=== PATIENT | male | born 1950 | race American Indian/Alaskan Native ===

== ENCOUNTER 2018-05-19 10:05 | Inpatient (IN) | payer MEDICARE ==
[2018-05-19 10:18] VITALS: BMI 29.1
--- NOTE | 2018-05-19 11:24 | C.PDOC ---
History Of Present Illness 67-year-old male, whose past medical history includes HIV and HTN and surgical history includes back surgery in February 2018, presents to the ED for evaluation of intermittent dizziness and lightheadedness and abdominal bloating for a few days. Patient states his last bowel movement was more than three days ago. Patient denies fever, chills, chest pain, c/o shortness of breath. Additional information is difficult to obtain because patient is a vague historian and constantly keeps changing his story. Time Seen by Provider: 05/19/18 10:20 Chief Complaint (Nursing): Abdominal Pain History Per: Patient History/Exam Limitations: other (vague historian ) Onset/Duration Of Symptoms: Days, Intermittent Episodes Current Symptoms Are (Timing): Still Present Quality Of Discomfort: Other (bloating ). denies: "Pain" Associated Symptoms: Constipation. denies: Fever, Chills, Chest Pain Last Bowel Movement: Days Ago (more than 3) Additional History Per: Patient Past Medical History Reviewed: Historical Data, Nursing Documentation, Vital Signs Vital Signs: Last Vital Signs Temp 98.5 F 05/19/18 10:12 Pulse 81 05/19/18 10:12 Resp 20 05/19/18 10:12 BP 165/96 H 05/19/18 10:12 Pulse Ox 97 05/19/18 10:12 - Medical History PMH: Back Problems, CHF, HIV, HTN, Peripheral Edema Denies: Alzheimer's Disease, Anemia, Anxiety, Arthritis, Asthma, Bipolar Disorder, Bronchitis, Cardia Arrhythmia, COPD, Crohn's Disease, Dementia, De pression, Diverticulitis, Emphysema, Fibromyalgia, Fractures, Gastrointestinal Ulcer, Gall Bladder Disease, Hypercholesterolemia, Hyperthyroidism, Hypothyroidism, Kidney Stones, Migraine, Mitral Valve Prolapse, Osteoporosis, Pancreatitis, Paranoia, Parkinson's Disease, Pneumonia, Post Traumatic Stress Disorder, Chronic Kidney Disease, Schizophrenia, Seizures, Sickle Cell Disease, Sexually Transmitted Disease, Sleep Apnea, TIA Surgical History: No Surg Hx Denies: Appendectomy, Cholecystectomy, Coronary Stent, Pacemaker Family History: States: Unknown Family Hx - Social History Hx Alcohol Use: No (QUIT 21 YRS AGO) Hx Substance Use: No - Immunization History Hx Tetanus Toxoid Vaccination: No Hx Influenza Vaccination: No Hx Pneumococcal Vaccination: No Review Of Systems Constitutional: Negative for: Fever, Chills ENT: Negative for: Ear Pain, Mouth Pain Cardiovascular: Negative for: Chest Pain, Palpitations Respiratory: Positive for: Shortness of Breath. Negative for: Cough Gastrointestinal: Positive for: Constipation, Other (abdominal bloating ). Negative for: Nausea, Vomiting, Abdominal Pain Skin: Negative for: Rash Neurological: Positive for: Dizziness, Other (lightheadedness ) Physical Exam - Physical Exam Appears: Non-toxic, No Acute Distress, Other (well-nourished ) Skin: Normal Color, Warm, Dry Head: Atraumatic, Normacephalic Eye(s): bilateral: Other (pupils are small, but reactive (patient with chronic opioid use)) Oral Mucosa: Moist Neck: Supple Chest: Symmetrical, No Deformity, No Tenderness Cardiovascular: Rhythm Regular, No Murmur Respiratory: Normal Breath Sounds, No Rales, No Rhonchi, No Wheezing, Other (speaking in full sentences ) Gastrointestinal/Abdominal: Bowel Sounds (unremarkable ), Soft, No Tenderness, No Guarding, No Rebound, Other (full-appearing abdomen ) Extremity: Normal ROM, Capillary Refill (less than 2 seconds ) Neurological/Psych: Oriented x3, Normal Speech, Normal Cognition, Normal Cranial Nerves, Normal Motor, Normal Sensation Gait: Steady ED Course And Treatment - Laboratory Results Result Diagrams: 05/19/18 13:13 05/19/18 13:13 ECG: Interpreted By Me, Viewed By Me ECG Rhythm: Sinus Rhythm Interpretation Of ECG: Normal sinus rhythm at rate 77bpm. ST & T wave abnormality. Rate From EC O2 Sat by Pulse Oximetry: 97 (on RA ) Pulse Ox Interpretation: Normal - Other Rad Abdomen XR X-Ray: Viewed By Me, Read By Radiologist Interpretation: IMPRESSION: Mild stool scattered throughout the colon noted. No dilated small or large bowel loop seen. There is gas in nondistended small and large bowel loops noted. No obstruction appreciated. Clinical follow-up recommended. Large body habitus. Chest XR X-Ray: Viewed By Me, Read By Radiologist Interpretation: IMPRESSION: Mild left basilar atelectasis. Cardiomegaly. - CT Scan/US CT Chest Other Rad Studies (CT/US): Read By Radiologist, Radiology Report Reviewed CT/US Interpretation: IMPRESSION: There is evidence of pulmonary embolus within the right middle lobe of pulmonary artery. Note these findings were discussed with Dr. Scanlon at approximately 4:15 p.m. with written down and read back verification.. Ascending thoracic aorta measures approximately 3.8 cm. There are a few small of bleb changes seen in the upper lobes and lung apices right greater than left. CT Head Other Rad Studies (CT/US): Read By Radiologist, Radiology Report Reviewed CT/US Interpretation: IMPRESSION: No acute intracranial hemorrhage. Mild chronic white matter ischemic changes with questionable chronic lacunar-type infarct left basal ganglia. Moderate generalized volume loss. Medical Decision Making Medical Decision Making: Impression: 67 year old male with dizziness, lightheadedness, abdominal bloating and sob. Progress: pt with vague complaints, sob, dizzy, recent surgery. head ct neg, d dimer elevated. bnp neg, cxr neg, trop neg. chest ct positive for pe on right side. discussed with Dr Jayesh Cm, pt to be admitted to his service. pt agrees with plan. 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 - Scribe Statement The provider has reviewed the documentation as recorded by the Scribe (Mary Cm) All medical record entries made by the Scribe were at my direction and personally dictated by me. I have reviewed the chart and agree that the record accurately reflects my personal performance of the history, physical exam, medical decision making, and the department course for this patient. I have also personally directed, reviewed, and agree with the discharge instructions and disposition.
--- NOTE | 2018-05-19 12:25 | RAD ---
HISTORY: chest pain COMPARISON: No prior. TECHNIQUE: Chest PA and lateral FINDINGS: LUNGS: Mild left basilar atelectasis. Please note that chest x-ray has limited sensitivity for the detection of pulmonary masses. PLEURA: No significant pleural effusion identified. No definite pneumothorax . CARDIOVASCULAR: Cardiomegaly. Ectatic aorta. Atherosclerotic calcifications of the aorta present. OSSEOUS STRUCTURES: Degenerative changes of the spine. VISUALIZED UPPER ABDOMEN: Unremarkable. OTHER FINDINGS: None. IMPRESSION: Mild left basilar atelectasis. Cardiomegaly.
--- NOTE | 2018-05-19 12:27 | CT ---
Date of service: 05/19/2018 PROCEDURE: CT HEAD WITHOUT CONTRAST. HISTORY: Dizzy for few days COMPARISON: No prior study available for comparison. TECHNIQUE: Axial computed tomography images were obtained through the head/brain without intravenous contrast. Radiation dose: Total exam DLP = 1025.56 mGy-cm. This CT exam was performed using one or more of the following dose reduction techniques: Automated exposure control, adjustment of the mA and/or kV according to patient size, and/or use of iterative reconstruction technique. FINDINGS: HEMORRHAGE: No acute parenchymal, subarachnoid or extra-axial hemorrhage. BRAIN: Minor diffuse/confluent chronic periventricular white matter ischemic changes seen extending peripherally into the deep and subcortical white matter both cerebral hemispheres., there also appears to be a few scattered subcortical white matter ischemic changes. Questionable chronic left basal ganglia lacunar type infarct along the proximal aspect posterior limb left internal capsule Moderate generalized volume loss. No obvious parenchymal nor extra-axial masses collections seen on this noncontrast exam VENTRICLES: No obstructive hydrocephalus. CALVARIUM: There are no acute calvarial fractures. PARANASAL SINUSES: Unremarkable as visualized. No significant inflammatory changes. MASTOID AIR CELLS: Unremarkable as visualized. No inflammatory changes. OTHER FINDINGS: None. IMPRESSION: No acute intracranial hemorrhage. Mild chronic white matter ischemic changes with questionable chronic lacunar-type infarct left basal ganglia. Moderate generalized volume loss.
[2018-05-19 13:28] LABS: BASO % 0.5 % (0.0-2.0); EOS # 0.2 K/uL (0.0-0.7); EOS % 2.6 % (0.0-4.0); HEMOGLOBIN 11.2 g/dL (12.0-18.0); LYMPH # 1.5 K/uL (1.0-4.3); LYMPH % 24.1 % (20.0-40.0); MEAN CELL VOLUME 93.2 fL (80.0-94.0); MEAN CORPUSCULAR HEMOGLOBIN 31.6 pg (27.0-31.0); MEAN CORPUSCULAR HGB CONC 33.9 g/dL (33.0-37.0); MEAN PLATELET VOLUME 8.1 fL (7.2-11.7); MONO # 0.4 K/uL (0.0-0.8); MONO % 6.7 % (0.0-10.0); NEUT # 4.2 K/uL (1.8-7.0); NEUT % 66.1 % (50.0-75.0); RBC 3.53 Mil/uL (4.40-5.90); RED CELL DISTRIBUTION WIDTH 13.4 % (11.5-14.5); WHITE BLOOD COUNT 6.4 K/uL (4.8-10.8)
[2018-05-19 13:39] LABS: SQUAMOUS EPITHIAL < 1 /hpf (0-5); URINE BILIRUBIN NEGATIVE (NEGATIVE); URINE BLOOD NEGATIVE (NEGATIVE); URINE CLARITY Clear (Clear); URINE COLOR Yellow (YELLOW); URINE GLUCOSE (UA) NORMAL (Normal); URINE LEUKOCYTE ESTERASE NEG Leu/uL (Negative); URINE PROTEIN 1+ mg/dL (NEGATIVE); URINE UROBILINOGEN NORMAL mg/dL (0.2-1.0)
[2018-05-19 13:45] LABS: INR 1.2; PROTHROMBIN TIME 12.6 SECONDS (9.7-12.2)
[2018-05-19 13:51] LABS: ALB/GLOB RATIO 1.2 (1.0-2.1); ALBUMIN 4.4 g/dL (3.5-5.0); ALT/SGPT 23 U/L (21-72); AST/SGOT 39 U/L (17-59); BLOOD UREA NITROGEN 15 mg/dL (9-20); CALCIUM 9.7 mg/dl (8.6-10.4); GFR NON-AFRICAN AMERICAN > 60
[2018-05-19 14:08] LABS: B-TYPE NATRIURETIC PEPTIDE 241 pg/mL (0-900)
[2018-05-19] MEDS ORDERED: Iodixanol 320 MG/ML 100 ML BOTTLE IV ONE (15:07)
--- NOTE | 2018-05-19 16:23 | CT ---
Date of service: 05/19/2018 PROCEDURE: CT Chest with contrast (Pulmonary Angiogram) HISTORY: SOB recent surgery. elevated D dimer COMPARISON: None available. TECHNIQUE: Axial computed tomography images were obtained of the chest in the pulmonary arterial phase of enhancement. Coronal and sagittal reformatted images were created and reviewed. Intravenous contrast dose: 100 cc Visipaque 320 Radiation dose: Total exam DLP = 569.02 mGy-cm. This CT exam was performed using one or more of the following dose reduction techniques: Automated exposure control, adjustment of the mA and/or kV according to patient size, and/or use of iterative reconstruction technique. FINDINGS: PULMONARY ARTERIES: The current study reveals filling defects seen within the right middle lobe of pulmonary artery branch consistent with pulmonary embolus.. The pulmonary trunk, right and left main a patent. The remaining lobar branches as well as segmental and proximal subsegmental branches appear patent. Pulmonary trunk measures approximately 2.5 cm. AORTA: No acute findings.. The ascending thoracic aorta measures approximately 3.8 cm and descending thoracic aorta measures approximately 2.85 cm. No significant aortic atherosclerotic calcification or mural plaque present. LUNGS: . Mild atelectasis and/or scarring changes seen in both lung bases including the middle lobe and lingular regions. No focal consolidation. No evidence of parenchymal mass. Small elliptical shaped 7.5 mm pleural-based nodule noted in the anterior lateral aspect right upper lobe bordering the fissure.. There are scattered small blebs seen in the right upper and to a lesser degree left upper lobes otherwise clear PLEURAL SPACES: Unremarkable. No effusion or pneumothorax. HEART: Heart size is borderline/mildly enlarged. No significant pericardial effusion.. No significant pericardial effusion. LYMPH NODES: N no significant mediastinal or hilar adenopathy.. Trachea midline with no large central endoluminal lesions. There is a small hiatal hernia with slight wall thickening of the distal esophagus likely due to protrusion of gastric mucosa. BONES, CHEST WALL: Mild multilevel degenerative spondylosis of the lower thoracic and upper lumbar spine. OTHER FINDINGS: Unremarkable. Mild partially calcified abdominal aortic atherosclerotic plaque changes. IMPRESSION: There is evidence of pulmonary embolus within the right middle lobe of pulmonary artery. Note these findings were discussed with Dr. Scanlon at approximately 4:15 p.m. with written down and read back verification.. Ascending thoracic aorta measures approximately 3.8 cm. There are a few small of bleb changes seen in the upper lobes and lung apices right greater than left.
[2018-05-19] MEDS ORDERED: Labetalol 25mg/5ml Syringe IVP STA (16:29)
[2018-05-19] MEDS ORDERED: Enoxaparin 100 mg Syringe SC STA (16:30)
[2018-05-19] MEDS ORDERED: Labetalol 5mg/ml (4ml) ONE (16:42)
[2018-05-19] MEDS ORDERED: Enoxaparin 100 mg Syringe ONE (16:43)
--- NOTE | 2018-05-19 16:54 | RAD ---
Date of service: 05/19/2018 HISTORY: no bm x few days COMPARISON: None available. FINDINGS: BOWEL: Mild stool scattered throughout the colon noted. No dilated small or large bowel loop seen. There is gas in nondistended small and large bowel loops noted. Large body habitus. There is contrast within the nondistended bladder. From patient's prior angio chest PE study. Left hemipelvic phleboliths are inferred. BONES: Degenerative changes lumbar spine and both hips. OTHER FINDINGS: None. IMPRESSION: Mild stool scattered throughout the colon noted. No dilated small or large bowel loop seen. There is gas in nondistended small and large bowel loops noted. No obstruction appreciated. Clinical follow-up recommended Large body habitus.
[2018-05-19 17:13] VITALS: RESP 20
--- NOTE | 2018-05-19 21:01 | CP.PCM.HP ---
Past Patient History - Infectious Disease Hx of Infectious Diseases: None - Tetanus Immunizations Tetanus Immunization: Unknown - Past Medical History & Family History Past Medical History?: Yes - Past Social History Smoking Status: Former Smoker - CARDIAC Hx Cardiac Disorders: Yes Hx Cardia Arrhythmia: No Hx Congestive Heart Failure: Yes Hx Hypercholesterolemia: No Hx Hypertension: Yes Hx Mitral Valve Prolapse: No Hx Pacemaker: No Hx Peripheral Edema: Yes - PULMONARY Hx Respiratory Disorders: No Hx Asthma: No Hx Bronchitis: No Hx Chronic Obstructive Pulmonary Disease (COPD): No Hx Emphysema: No Hx Pneumonia: No Hx Sleep Apnea: No - NEUROLOGICAL Hx Neurological Disorder: No Hx Alzheimer's Disease: No Hx Dementia: No Hx Migraine: No Hx Parkinson's Disease: No Hx Seizures: No Hx Transient Ischemic Attacks (TIA): No - HEENT Hx HEENT Problems: No - RENAL Hx Chronic Kidney Disease: No Hx Kidney Stones: No - ENDOCRINE/METABOLIC Hx Endocrine Disorders: No Hx Hyperthyroidism: No Hx Hypothyroidism: No - HEMATOLOGICAL/ONCOLOGICAL Hx Blood Disorders: Yes Hx Anemia: No Hx Human Immunodeficiency Virus (HIV): Yes Hx Sickle Cell Disease: No - INTEGUMENTARY Hx Dermatological Problems: No - MUSCULOSKELETAL/RHEUMATOLOGICAL Hx Musculoskeletal Disorders: No Hx Arthritis: No Hx Falls: No Hx Fractures: No Hx Osteoporosis: No - GASTROINTESTINAL Hx Gastrointestinal Disorders: No Hx Crohn's Disease: No Hx Diverticulitis: No Hx Gall Bladder Disease: No Hx Pancreatitis: No - GENITOURINARY/GYNECOLOGICAL Hx Genitourinary Disorders: No Hx Sexually Transmitted Disorders: No - PSYCHIATRIC Hx Psychophysiologic Disorder: No Hx Anxiety: No Hx Bipolar Disorder: No Hx Depression: No Hx Paranoia: No Hx Post Traumatic Stress Disorder: No Hx Schizophrenia: No Hx Substance Use: No - SURGICAL HISTORY Hx Surgeries: Yes Hx Appendectomy: No Hx Cholecystectomy: No Hx Coronary Stent: No Other/Comment: back sx, laminectomy/diskectomy 02/22/18 - ANESTHESIA Hx Anesthesia: Yes Hx Anesthesia Reactions: No Meds Allergies/Adverse Reactions: Allergies Allergy/AdvReac Type Severity Reaction Status Date / Time No Known Allergies Allergy Verified 05/19/18 10:10 Physical Exam - Constitutional Appears: Well - Head Exam Head Exam: ATRAUMATIC, NORMAL INSPECTION, NORMOCEPHALIC - Eye Exam Eye Exam: EOMI, Normal appearance, PERRL Pupil Exam: NORMAL ACCOMODATION, PERRL - ENT Exam ENT Exam: Mucous Membranes Moist, Normal Exam - Neck Exam Neck exam: Positive for: Normal Inspection - Respiratory Exam Respiratory Exam: Decreased Breath Sounds - Cardiovascular Exam Cardiovascular Exam: REGULAR RHYTHM, +S1, +S2 - GI/Abdominal Exam GI & Abdominal Exam: Diminished Bowel Sounds, Soft - Rectal Exam Rectal Exam: Deferred Results - Vital Signs Recent Vital Signs: Last Vital Signs Temp 97.4 F L 05/19/18 17:30 Pulse 80 05/19/18 17:30 Resp 20 05/19/18 17:30 BP 160/99 H 05/19/18 17:30 Pulse Ox 97 05/19/18 18:40 - Labs Result Diagrams: 05/19/18 13:13 05/19/18 13:13 Labs: Laboratory Results - last 24 hr 05/19/18 05/19/18 05/19/18 12:56 13:13 13:13 WBC 6.4 RBC 3.53 L Hgb 11.2 L Hct 32.9 L MCV 93.2 MCH 31.6 H MCHC 33.9 RDW 13.4 Plt Count 248 MPV 8.1 Neut % (Auto) 66.1 Lymph % (Auto) 24.1 [place] % (Auto) 6.7 Eos % (Auto) 2.6 Baso % (Auto) 0.5 Neut # (Auto) 4.2 Lymph # (Auto) 1.5 [place] # (Auto) 0.4 Eos # (Auto) 0.2 Baso # (Auto) 0.0 PT 12.6 H INR 1.2 APTT 33 D-Dimer, Quantitative 1992 H Sodium Potassium Chloride Carbon Dioxide Anion Gap BUN Creatinine Est GFR ( Amer) Est GFR (Non-Af Amer) Random Glucose Calcium Total Bilirubin AST ALT Alkaline Phosphatase Troponin I NT-Pro-B Natriuret Pep Total Protein Albumin Globulin Albumin/Globulin Ratio Urine Color Yellow Urine Clarity Clear Urine pH 5.0 Ur Specific [place] 1.027 Urine Protein 1+ H Urine Glucose (UA) Normal Urine Ketones Negative Urine Blood Negative Urine Nitrate Negative Urine Bilirubin Negative Urine Urobilinogen Normal Ur Leukocyte Esterase Neg Urine WBC (Auto) 3 Urine RBC (Auto) 1 Ur Squamous Epith Cells < 1 05/19/18 13:13 WBC RBC Hgb Hct MCV MCH MCHC RDW Plt Count MPV Neut % (Auto) Lymph % (Auto) [place] % (Auto) Eos % (Auto) Baso % (Auto) Neut # (Auto) Lymph # (Auto) [place] # (Auto) Eos # (Auto) Baso # (Auto) PT INR APTT D-Dimer, Quantitative Sodium 140 Potassium 4.1 Chloride 103 Carbon Dioxide 23 Anion Gap 19 BUN 15 Creatinine 0.9 Est GFR ( Amer) > 60 Est GFR (Non-Af Amer) > 60 Random Glucose 97 Calcium 9.7 Total Bilirubin 0.5 AST 39 ALT 23 Alkaline Phosphatase 53 Troponin I < 0.0120 NT-Pro-B Natriuret Pep 241 Total Protein 8.1 Albumin 4.4 Globulin 3.6 Albumin/Globulin Ratio 1.2 Urine Color Urine Clarity Urine pH Ur Specific [place] Urine Protein Urine Glucose (UA) Urine Ketones Urine Blood Urine Nitrate Urine Bilirubin Urine Urobilinogen Ur Leukocyte Esterase Urine WBC (Auto) Urine RBC (Auto) Ur Squamous Epith Cells
[2018-05-19] MEDS: Enoxaparin 100 mg Syringe SC SCH (21:34)
[2018-05-20] MEDS ORDERED: oxyCODONE 30 mg Immediate Release Tab PO ONE (01:22)
[2018-05-20] MEDS: Enoxaparin 100 mg Syringe SC SCH ×2 (11:34→21:16)
--- NOTE | 2018-05-20 11:54 | CP.PCM.CON ---
History of Present Illness - History of Present Illness History of Present Illness: 67 year old male with a history of HIV, chronic back pain s/p back surgery in 02/2018, presenting with progressive fatigue and dyspnea on exertion, found to have right PE. The patient reports to limited mobility since his back surgery. He also notes to increased swelling in his legs. He denies abnormal bleeding and bruising. He has no fevers and chills Past medical history: HIV, chronic back pain. Past surgical history: Laminectomy and discectomy 02/2018 Family history: Denies hematologic and oncologic problems Social history: Denies tobacco, alcohol, and illicit drug use. Allergies: NKA Review of systems: All remaining review of systems including HEENT, cardiovascular, respiratory, gastrointestinal, genitourinary, musculoskeletal, dermatologic, neurologic, and psychiatric are negative unless mentioned in the HPI. Past Patient History - Infectious Disease Hx of Infectious Diseases: None - Tetanus Immunizations Tetanus Immunization: Unknown - Past Medical History & Family History Past Medical History?: Yes - Past Social History Smoking Status: Former Smoker - CARDIAC Hx Cardiac Disorders: Yes Hx Cardia Arrhythmia: No Hx Congestive Heart Failure: Yes Hx Hypercholesterolemia: No Hx Hypertension: Yes Hx Mitral Valve Prolapse: No Hx Pacemaker: No Hx Peripheral Edema: Yes - PULMONARY Hx Respiratory Disorders: No Hx Asthma: No Hx Bronchitis: No Hx Chronic Obstructive Pulmonary Disease (COPD): No Hx Emphysema: No Hx Pneumonia: No Hx Sleep Apnea: No - NEUROLOGICAL Hx Neurological Disorder: No Hx Alzheimer's Disease: No Hx Dementia: No Hx Migraine: No Hx Parkinson's Disease: No Hx Seizures: No Hx Transient Ischemic Attacks (TIA): No - HEENT Hx HEENT Problems: No - RENAL Hx Chronic Kidney Disease: No Hx Kidney Stones: No - ENDOCRINE/METABOLIC Hx Endocrine Disorders: No Hx Hyperthyroidism: No Hx Hypothyroidism: No - HEMATOLOGICAL/ONCOLOGICAL Hx Blood Disorders: Yes Hx Anemia: No Hx Human Immunodeficiency Virus (HIV): Yes Hx Sickle Cell Disease: No - INTEGUMENTARY Hx Dermatological Problems: No - MUSCULOSKELETAL/RHEUMATOLOGICAL Hx Musculoskeletal Disorders: No Hx Arthritis: No Hx Falls: No Hx Fractures: No Hx Osteoporosis: No - GASTROINTESTINAL Hx Gastrointestinal Disorders: No Hx Crohn's Disease: No Hx Diverticulitis: No Hx Gall Bladder Disease: No Hx Pancreatitis: No - GENITOURINARY/GYNECOLOGICAL Hx Genitourinary Disorders: No Hx Sexually Transmitted Disorders: No - PSYCHIATRIC Hx Psychophysiologic Disorder: No Hx Anxiety: No Hx Bipolar Disorder: No Hx Depression: No Hx Paranoia: No Hx Post Traumatic Stress Disorder: No Hx Schizophrenia: No Hx Substance Use: No - SURGICAL HISTORY Hx Surgeries: Yes Hx Appendectomy: No Hx Cholecystectomy: No Hx Coronary Stent: No Other/Comment: back sx, laminectomy/diskectomy 02/22/18 - ANESTHESIA Hx Anesthesia: Yes Hx Anesthesia Reactions: No Meds Allergies/Adverse Reactions: Allergies Allergy/AdvReac Type Severity Reaction Status Date / Time No Known Allergies Allergy Verified 05/19/18 10:10 - Medications Medications: Current Medications Aspirin (Ecotrin) 81 mg PO DAILY [facility] Last Admin: 05/20/18 09:08 Dose: 81 mg Carvedilol (Coreg) 25 mg PO DAILY [facility] Last Admin: 05/20/18 09:08 Dose: 25 mg Enalapril Maleate (Vasotec) 20 mg PO DAILY [facility] Last Admin: 05/20/18 09:07 Dose: 20 mg Enoxaparin Sodium (Lovenox) 100 mg SC Q12 [facility] Last Admin: 05/20/18 11:34 Dose: 100 mg Influenza Virus Vaccine (Fluzone Quad [id number]) 60 mcg IM .ONCE ONE Stop: 05/21/18 12:01 Methadone HCl (Methadone) 10 mg PO DAILY [facility] Oxycodone HCl (Oxycodone Immediate Release Tab) 30 mg PO TID [facility] Pneumococcal Polyvalent Vaccine (Pneumovax 23 Vaccine) 0.5 ml IM .ONCE ONE Stop: 05/21/18 12:01 Physical Exam - Head Exam Head Exam: ATRAUMATIC - Eye Exam Eye Exam: Normal appearance - ENT Exam ENT Exam: Mucous Membranes Dry - Respiratory Exam Respiratory Exam: NORMAL BREATHING PATTERN - Cardiovascular Exam Cardiovascular Exam: +S1, +S2 - GI/Abdominal Exam GI & Abdominal Exam: Normal Bowel Sounds - Extremities Exam Extremities exam: Positive for: pedal edema - Neurological Exam Neurological exam: Oriented x3 - Psychiatric Exam Psychiatric exam: Normal Affect, Normal Mood - Skin Skin Exam: Warm Results - Vital Signs Recent Vital Signs: Last Vital Signs Temp 98.7 F 05/20/18 07:40 Pulse 87 05/20/18 07:40 Resp 20 05/20/18 07:40 BP 154/89 H 05/20/18 09:08 Pulse Ox 95 05/20/18 07:40 - Labs Result Diagrams: 05/19/18 13:13 05/19/18 13:13 Labs: Laboratory Results - last 24 hr 05/19/18 05/19/18 05/19/18 12:56 13:13 13:13 WBC 6.4 RBC 3.53 L Hgb 11.2 L Hct 32.9 L MCV 93.2 MCH 31.6 H MCHC 33.9 RDW 13.4 Plt Count 248 MPV 8.1 Neut % (Auto) 66.1 Lymph % (Auto) 24.1 [place] % (Auto) 6.7 Eos % (Auto) 2.6 Baso % (Auto) 0.5 Neut # (Auto) 4.2 Lymph # (Auto) 1.5 [place] # (Auto) 0.4 Eos # (Auto) 0.2 Baso # (Auto) 0.0 PT 12.6 H INR 1.2 APTT 33 D-Dimer, Quantitative 1992 H Sodium Potassium Chloride Carbon Dioxide Anion Gap BUN Creatinine Est GFR ( Amer) Est GFR (Non-Af Amer) Random Glucose Calcium Total Bilirubin AST ALT Alkaline Phosphatase Troponin I NT-Pro-B Natriuret Pep Total Protein Albumin Globulin Albumin/Globulin Ratio Urine Color Yellow Urine Clarity Clear Urine pH 5.0 Ur Specific [place] 1.027 Urine Protein 1+ H Urine Glucose (UA) Normal Urine Ketones Negative Urine Blood Negative Urine Nitrate Negative Urine Bilirubin Negative Urine Urobilinogen Normal Ur Leukocyte Esterase Neg Urine WBC (Auto) 3 Urine RBC (Auto) 1 Ur Squamous Epith Cells < 1 05/19/18 13:13 WBC RBC Hgb Hct MCV MCH MCHC RDW Plt Count MPV Neut % (Auto) Lymph % (Auto) [place] % (Auto) Eos % (Auto) Baso % (Auto) Neut # (Auto) Lymph # (Auto) [place] # (Auto) Eos # (Auto) Baso # (Auto) PT INR APTT D-Dimer, Quantitative Sodium 140 Potassium 4.1 Chloride 103 Carbon Dioxide 23 Anion Gap 19 BUN 15 Creatinine 0.9 Est GFR ( Amer) > 60 Est GFR (Non-Af Amer) > 60 Random Glucose 97 Calcium 9.7 Total Bilirubin 0.5 AST 39 ALT 23 Alkaline Phosphatase 53 Troponin I < 0.0120 NT-Pro-B Natriuret Pep 241 Total Protein 8.1 Albumin 4.4 Globulin 3.6 Albumin/Globulin Ratio 1.2 Urine Color Urine Clarity Urine pH Ur Specific [place] Urine Protein Urine Glucose (UA) Urine Ketones Urine Blood Urine Nitrate Urine Bilirubin Urine Urobilinogen Ur Leukocyte Esterase Urine WBC (Auto) Urine RBC (Auto) Ur Squamous Epith Cells Assessment & Plan (1) Pulmonary embolism Assessment and Plan: agree with therapeutic anticoagulation rule out DVT ? provoked from immobility outpatient Eliquis Status: Acute (2) Anemia Assessment and Plan: retic count, b12, folate, ferritin, FOBT to further characterize element of anemia of HIV Thank you for this interesting consult. Status: Acute
[2018-05-20] MEDS: oxyCODONE 30 mg Immediate Release Tab PO SCH ×2 (12:32→20:25)
--- NOTE | 2018-05-20 15:17 | CP.PCM.PN ---
Subjective - Date & Time of Evaluation Date of Evaluation: 05/20/18 Time of Evaluation: 11:15 - Subjective Subjective: clinically same Objective - Vital Signs/Intake and Output Vital Signs (last 24 hours): Temp Pulse Resp BP Pulse Ox 98.7 F 78 20 154/89 H 95 05/20/18 07:40 05/20/18 08:00 05/20/18 07:40 05/20/18 09:08 05/20/18 07:40 - Medications Medications: Current Medications Aspirin (Ecotrin) 81 mg PO DAILY [facility] Last Admin: 05/20/18 09:08 Dose: 81 mg Carvedilol (Coreg) 25 mg PO DAILY [facility] Last Admin: 05/20/18 09:08 Dose: 25 mg Enalapril Maleate (Vasotec) 20 mg PO DAILY [facility] Last Admin: 05/20/18 09:07 Dose: 20 mg Enoxaparin Sodium (Lovenox) 100 mg SC Q12 [facility] Last Admin: 05/20/18 11:34 Dose: 100 mg Influenza Virus Vaccine (Fluzone Quad [id number]) 60 mcg IM .ONCE ONE Stop: 05/21/18 12:01 Methadone HCl (Methadone) 10 mg PO DAILY [facility] Last Admin: 05/20/18 12:31 Dose: 10 mg Oxycodone HCl (Oxycodone Immediate Release Tab) 30 mg PO Q8H [facility] Last Admin: 05/20/18 12:32 Dose: 30 mg Pneumococcal Polyvalent Vaccine (Pneumovax 23 Vaccine) 0.5 ml IM .ONCE ONE Stop: 05/21/18 12:01 - Labs Labs: 05/19/18 13:13 05/19/18 13:13 PT 12.6 SECONDS (9.7-12.2) H 05/19/18 13:13 INR 1.2 05/19/18 13:13 APTT 33 SECONDS (21-34) 05/19/18 13:13 - Constitutional Appears: Well - Head Exam Head Exam: ATRAUMATIC, NORMAL INSPECTION, NORMOCEPHALIC - Eye Exam Eye Exam: EOMI, Normal appearance, PERRL Pupil Exam: NORMAL ACCOMODATION, PERRL - ENT Exam ENT Exam: Mucous Membranes Moist, Normal Exam - Neck Exam Neck Exam: Full ROM, Normal Inspection. absent: Lymphadenopathy - Respiratory Exam Respiratory Exam: Decreased Breath Sounds - Cardiovascular Exam Cardiovascular Exam: REGULAR RHYTHM, +S1, +S2 - GI/Abdominal Exam GI & Abdominal Exam: Soft, Diminished Bowel Sounds - Rectal Exam Rectal Exam: Deferred
--- NOTE | 2018-05-20 15:31 | CP.PCM.CON ---
History of Present Illness - History of Present Illness History of Present Illness: CHART REVIEWED. PT SEEN AND EXAMINED 67 YO B MALE WITH A HX HIV+, HTN, ?CHF, OBESITY, CHRONIC BACK PAIN S/P SURG 02/2018, ADM 05/19/18 WITH INCREASED MOD SOB WITH MIN EXERTION X 3 DAYS WITH DIZZINESS. NO SYNCOPE. NO CP. NO HX ASTHMA., NO COUGH. AMBULATING WITH CANE, HAS BEEN IN REHAB AND SEDENTARY SINCE THE BACK SURGERY FEW MONTHS AGO. ON NO INHALERS, QUIT SMOKING/ ETOH AND DRUGS YRS AGO. Review of Systems - Review of Systems All systems: reviewed and no additional remarkable complaints except - Constitutional Constitutional: Weakness - EENT Eyes: absent: Change in Vision Ears: Dizziness Nose/Mouth/Throat: absent: Nasal Congestion - Cardiovascular Cardiovascular: absent: Chest Pain - Respiratory Respiratory: Dyspnea on Exertion. absent: Pain on Inspiration, Excessive Mucous Production, Change in Mucous Color - Gastrointestinal Gastrointestinal: absent: Nausea, Vomiting - Genitourinary Genitourinary: absent: Difficulty Urinating - Musculoskeletal Musculoskeletal: Arthralgias, Back Pain, Stiffness - Integumentary Integumentary: absent: Lesions - Neurological Neurological: Dizziness. absent: Confusion - Psychiatric Psychiatric: absent: Anxiety - Endocrine Endocrine: absent: Change in Body Appearance - Hematologic/Lymphatic Hematologic: absent: Easy Bleeding Past Patient History - Infectious Disease Hx of Infectious Diseases: None - Tetanus Immunizations Tetanus Immunization: Unknown - Past Medical History & Family History Past Medical History?: Yes Past Family History: Reviewed and not pertinent - Past Social History Smoking Status: Former Smoker Alcohol: None Drugs: Denies - CARDIAC Hx Cardiac Disorders: Yes Hx Cardia Arrhythmia: No Hx Congestive Heart Failure: Yes Hx Hypercholesterolemia: No Hx Hypertension: Yes Hx Mitral Valve Prolapse: No Hx Pacemaker: No Hx Peripheral Edema: Yes - PULMONARY Hx Respiratory Disorders: No Hx Asthma: No Hx Bronchitis: No Hx Chronic Obstructive Pulmonary Disease (COPD): No Hx Emphysema: No Hx Pneumonia: No Hx Pulmonary Embolism: No Hx Sleep Apnea: No - NEUROLOGICAL Hx Neurological Disorder: No Hx Alzheimer's Disease: No Hx Dementia: No Hx Migraine: No Hx Parkinson's Disease: No Hx Seizures: No Hx Transient Ischemic Attacks (TIA): No - HEENT Hx HEENT Problems: No - RENAL Hx Chronic Kidney Disease: No Hx Kidney Stones: No - ENDOCRINE/METABOLIC Hx Endocrine Disorders: No Hx Hyperthyroidism: No Hx Hypothyroidism: No - HEMATOLOGICAL/ONCOLOGICAL Hx Blood Disorders: Yes Hx Anemia: No Hx Human Immunodeficiency Virus (HIV): Yes Hx Sickle Cell Disease: No - INTEGUMENTARY Hx Dermatological Problems: No - MUSCULOSKELETAL/RHEUMATOLOGICAL Hx Musculoskeletal Disorders: No Hx Arthritis: No Hx Falls: No Hx Fractures: No Hx Osteoporosis: No - GASTROINTESTINAL Hx Gastrointestinal Disorders: No Hx Crohn's Disease: No Hx Diverticulitis: No Hx Gall Bladder Disease: No Hx Pancreatitis: No - GENITOURINARY/GYNECOLOGICAL Hx Genitourinary Disorders: No Hx Sexually Transmitted Disorders: No - PSYCHIATRIC Hx Psychophysiologic Disorder: No Hx Anxiety: No Hx Bipolar Disorder: No Hx Depression: No Hx Paranoia: No Hx Post Traumatic Stress Disorder: No Hx Schizophrenia: No Hx Substance Use: No - SURGICAL HISTORY Hx Surgeries: Yes Hx Appendectomy: No Hx Cholecystectomy: No Hx Coronary Stent: No Hx Musculoskeletal Surgery: Yes Hx Orthopedic Surgery: Yes Other/Comment: back sx, laminectomy/diskectomy 02/22/18 - ANESTHESIA Hx Anesthesia: Yes Hx Anesthesia Reactions: No Meds Allergies/Adverse Reactions: Allergies Allergy/AdvReac Type Severity Reaction Status Date / Time No Known Allergies Allergy Verified 05/19/18 10:10 - Medications Medications: Current Medications Aspirin (Ecotrin) 81 mg PO DAILY [facility] Last Admin: 05/20/18 09:08 Dose: 81 mg Carvedilol (Coreg) 25 mg PO DAILY [facility] Last Admin: 05/20/18 09:08 Dose: 25 mg Enalapril Maleate (Vasotec) 20 mg PO DAILY [facility] Last Admin: 05/20/18 09:07 Dose: 20 mg Enoxaparin Sodium (Lovenox) 100 mg SC Q12 [facility] Last Admin: 05/20/18 11:34 Dose: 100 mg Influenza Virus Vaccine (Fluzone Quad [id number]) 60 mcg IM .ONCE ONE Stop: 05/21/18 12:01 Methadone HCl (Methadone) 10 mg PO DAILY [facility] Last Admin: 05/20/18 12:31 Dose: 10 mg Oxycodone HCl (Oxycodone Immediate Release Tab) 30 mg PO Q8H [facility] Last Admin: 05/20/18 12:32 Dose: 30 mg Pneumococcal Polyvalent Vaccine (Pneumovax 23 Vaccine) 0.5 ml IM .ONCE ONE Stop: 05/21/18 12:01 Physical Exam - Constitutional Appears: No Acute Distress - Head Exam Head Exam: ATRAUMATIC, NORMOCEPHALIC - Eye Exam Eye Exam: EOMI, Normal appearance - ENT Exam ENT Exam: Mucous Membranes Moist - Neck Exam Neck exam: Positive for: Normal Inspection - Respiratory Exam Respiratory Exam: Decreased Breath Sounds. absent: Wheezes, Respiratory Distress - Cardiovascular Exam Cardiovascular Exam: RRR, +S1, +S2 - GI/Abdominal Exam GI & Abdominal Exam: Soft. absent: Tenderness - Rectal Exam Rectal Exam: Deferred - Extremities Exam Extremities exam: Negative for: calf tenderness, pedal edema - Back Exam Back exam: absent: CVA tenderness (L), CVA tenderness (R) - Neurological Exam Neurological exam: Alert, CN II-XII Intact, Oriented x3 - Psychiatric Exam Psychiatric exam: Normal Mood Results - Vital Signs Recent Vital Signs: Last Vital Signs Temp 98.7 F 05/20/18 07:40 Pulse 78 05/20/18 08:00 Resp 20 05/20/18 07:40 BP 154/89 H 05/20/18 09:08 Pulse Ox 95 05/20/18 07:40 - Labs Result Diagrams: 05/19/18 13:13 05/19/18 13:13 Assessment & Plan (1) HIV (human immunodeficiency virus infection) Status: Acute (2) Obesity Status: Acute (3) Lung nodule Status: Acute (4) CHF (congestive heart failure) Status: Acute (5) Hypertension Status: Acute (6) Pulmonary embolism Status: Acute - Assessment and Plan (Free Text) Assessment: 67 YO MALE WITH A HX MULT MED PROBS ADM WITH DYSPNEA, S/P RECENT BACK SURGERY, INACTIVE AT REHAB, CTA DONE +PE NOTED. CONT ANTICOAG. F/U LE DOPPLER RESULTS., MONITOR O2 SAT. F/U ECHO. PFT'S WHEN STABLE. MONITOR LUNG NODULE. PROG GUARDED. DISCUSSED WITH STAFF AT LENGTH.
--- NOTE | 2018-05-20 19:55 | CARD ---
APPROVED REPORT Date of service: 05/19/2018 EKG Measurement Heart [id number] <Conclusion> Normal sinus rhythm ST & T wave abnormality, consider lateral ischemia Abnormal ECG
[2018-05-21] MEDS: oxyCODONE 30 mg Immediate Release Tab PO SCH ×3 (04:56→20:41)
[2018-05-21 08:41] VITALS: O2SAT 96
--- NOTE | 2018-05-21 09:08 | CP.PCM.PN ---
Subjective - Date & Time of Evaluation Date of Evaluation: 05/21/18 Time of Evaluation: 09:06 - Subjective Subjective: PT ALERT, LESS SOB. NO CP. LESS LEFT LEG PAIN. ROS; OTHERWISE NEG Objective - Vital Signs/Intake and Output Vital Signs (last 24 hours): Temp Pulse Resp BP Pulse Ox 98.3 F 90 20 164/89 H 96 05/21/18 07:20 05/21/18 08:00 05/21/18 07:20 05/21/18 07:20 05/21/18 07:20 - Medications Medications: Current Medications Aspirin (Ecotrin) 81 mg PO DAILY [facility] Last Admin: 05/20/18 09:08 Dose: 81 mg Carvedilol (Coreg) 25 mg PO DAILY [facility] Last Admin: 05/20/18 09:08 Dose: 25 mg Enalapril Maleate (Vasotec) 20 mg PO DAILY [facility] Last Admin: 05/20/18 09:07 Dose: 20 mg Enoxaparin Sodium (Lovenox) 100 mg SC Q12 [facility] Last Admin: 05/20/18 21:16 Dose: 100 mg Influenza Virus Vaccine (Fluzone Quad [id number]) 60 mcg IM .ONCE ONE Stop: 05/21/18 12:01 Methadone HCl (Methadone) 10 mg PO DAILY [facility] Last Admin: 05/20/18 12:31 Dose: 10 mg Oxycodone HCl (Oxycodone Immediate Release Tab) 30 mg PO Q8H [facility] Last Admin: 05/21/18 04:56 Dose: 30 mg Pneumococcal Polyvalent Vaccine (Pneumovax 23 Vaccine) 0.5 ml IM .ONCE ONE Stop: 05/21/18 12:01 - Labs Labs: 05/19/18 13:13 05/19/18 13:13 PT 12.6 SECONDS (9.7-12.2) H 05/19/18 13:13 INR 1.2 05/19/18 13:13 APTT 33 SECONDS (21-34) 05/19/18 13:13 - Constitutional Appears: No Acute Distress - Head Exam Head Exam: ATRAUMATIC, NORMOCEPHALIC - Eye Exam Eye Exam: EOMI, Normal appearance - ENT Exam ENT Exam: Mucous Membranes Moist - Neck Exam Neck Exam: Normal Inspection - Respiratory Exam Respiratory Exam: Decreased Breath Sounds. absent: Accessory Muscle Use, Wheezes, Respiratory Distress - Cardiovascular Exam Cardiovascular Exam: RRR, +S1, +S2 - GI/Abdominal Exam GI & Abdominal Exam: Soft. absent: Tenderness - Rectal Exam Rectal Exam: Deferred - Extremities Exam Extremities Exam: absent: Calf Tenderness, Pedal Edema - Back Exam Back Exam: absent: CVA tenderness (L), CVA tenderness (R) - Neurological Exam Neurological Exam: Alert, Awake, CN II-XII Intact, Oriented x3 - Psychiatric Exam Psychiatric exam: Normal Mood - Skin Skin Exam: absent: Rash Assessment and Plan (1) HIV (human immunodeficiency virus infection) Status: Acute (2) Obesity Status: Acute (3) Lung nodule Status: Acute (4) CHF (congestive heart failure) Status: Acute (5) Hypertension Status: Acute (6) Pulmonary embolism Status: Acute - Assessment and Plan (Free Text) Assessment: RESP STATUS UNLABORED., MONITOR O2 SAT. PULM TOILET., CONT ANTICOAG. CTA REVIEWED. LE DOPPLER +DVT NOTED. PROG GUARDED. DISCUSSED WITH STAFF AT LENGTH.
[2018-05-21] MEDS: Enoxaparin 100 mg Syringe SC SCH ×2 (10:13→21:13)
[2018-05-21 11:13] LABS: BASO % 0.5 % (0.0-2.0); EOS # 0.2 K/uL (0.0-0.7); EOS % 3.8 % (0.0-4.0); HEMOGLOBIN 11.7 g/dL (12.0-18.0); LYMPH # 1.6 K/uL (1.0-4.3); LYMPH % 32.1 % (20.0-40.0); MEAN CELL VOLUME 93.2 fL (80.0-94.0); MEAN CORPUSCULAR HEMOGLOBIN 31.7 pg (27.0-31.0); MEAN PLATELET VOLUME 8.5 fL (7.2-11.7); MONO # 0.5 K/uL (0.0-0.8); MONO % 10.2 % (0.0-10.0); NEUT # 2.7 K/uL (1.8-7.0); NEUT % 53.4 % (50.0-75.0); NRBC % 0.2 % (0.0-2.0); RBC 3.68 Mil/uL (4.40-5.90); RED CELL DISTRIBUTION WIDTH 13.5 % (11.5-14.5)
[2018-05-21 11:34] LABS: ALB/GLOB RATIO 1.3 (1.0-2.1); ALBUMIN 4.5 g/dL (3.5-5.0); ALT/SGPT 21 U/L (21-72); AST/SGOT 39 U/L (17-59); BLOOD UREA NITROGEN 14 mg/dL (9-20); CALCIUM 9.7 mg/dl (8.6-10.4); GFR NON-AFRICAN AMERICAN > 60
[2018-05-21] MEDS ORDERED: Influenza Vaccine 60 MCG/0.5 ML SYR (3 yr & up) IM ONE (12:00)
[2018-05-21] MEDS ORDERED: Pneumococcal 23-Valent Vaccine IM ONE (12:00)
[2018-05-21 12:07] LABS: FERRITIN 75.7 ng/mL
--- NOTE | 2018-05-21 15:22 | CP.PCM.PN ---
Subjective - Date & Time of Evaluation Date of Evaluation: 05/21/18 Time of Evaluation: 10:30 - Subjective Subjective: clinically same Objective - Vital Signs/Intake and Output Vital Signs (last 24 hours): Temp Pulse Resp BP Pulse Ox 98.3 F 95 H 20 170/90 H 96 05/21/18 07:20 05/21/18 12:49 05/21/18 07:20 05/21/18 12:49 05/21/18 07:20 Intake and Output: 05/21/18 05/21/18 06:59 18:59 Intake Total 400 Balance 400 - Medications Medications: Current Medications Aspirin (Ecotrin) 81 mg PO DAILY [facility] Last Admin: 05/21/18 10:13 Dose: 81 mg Carvedilol (Coreg) 25 mg PO DAILY [facility] Last Admin: 05/21/18 10:13 Dose: 25 mg Enalapril Maleate (Vasotec) 20 mg PO DAILY [facility] Last Admin: 05/21/18 10:13 Dose: 20 mg Enoxaparin Sodium (Lovenox) 100 mg SC Q12 [facility] Last Admin: 05/21/18 10:13 Dose: 100 mg Methadone HCl (Methadone) 10 mg PO DAILY [facility] Last Admin: 05/21/18 10:13 Dose: 10 mg Oxycodone HCl (Oxycodone Immediate Release Tab) 30 mg PO Q8H [facility] Last Admin: 05/21/18 12:51 Dose: 30 mg - Labs Labs: 05/21/18 11:02 05/21/18 11:02 PT 12.6 SECONDS (9.7-12.2) H 05/19/18 13:13 INR 1.2 05/19/18 13:13 APTT 33 SECONDS (21-34) 05/19/18 13:13 - Constitutional Appears: Well - Head Exam Head Exam: ATRAUMATIC, NORMAL INSPECTION, NORMOCEPHALIC - Eye Exam Eye Exam: EOMI, Normal appearance, PERRL Pupil Exam: NORMAL ACCOMODATION, PERRL - ENT Exam ENT Exam: Mucous Membranes Moist, Normal Exam - Neck Exam Neck Exam: Full ROM, Normal Inspection. absent: Lymphadenopathy - Respiratory Exam Respiratory Exam: Decreased Breath Sounds - Cardiovascular Exam Cardiovascular Exam: REGULAR RHYTHM, +S1, +S2 - GI/Abdominal Exam GI & Abdominal Exam: Soft, Diminished Bowel Sounds - Rectal Exam Rectal Exam: Deferred
[2018-05-22] MEDS: oxyCODONE 30 mg Immediate Release Tab PO SCH ×2 (04:26→11:50)
[2018-05-22 09:05] VITALS: TEMP 98.4
[2018-05-22] MEDS: Enoxaparin 100 mg Syringe SC SCH (10:39)
[2018-05-22 12:37] VITALS: PULSE 86
--- NOTE | 2018-05-22 12:51 | CP.PCM.PN ---
Subjective - Date & Time of Evaluation Date of Evaluation: 05/22/18 Time of Evaluation: 10:00 - Subjective Subjective: clinically same Objective - Vital Signs/Intake and Output Vital Signs (last 24 hours): Temp Pulse Resp BP Pulse Ox 98.4 F 86 20 164/96 H 96 05/22/18 07:00 05/22/18 12:00 05/22/18 07:00 05/22/18 11:49 05/22/18 07:00 Intake and Output: 05/22/18 05/22/18 06:59 18:59 Intake Total 100 Balance 100 - Medications Medications: Current Medications Aspirin (Ecotrin) 81 mg PO DAILY [facility] Last Admin: 05/22/18 10:38 Dose: 81 mg Carvedilol (Coreg) 25 mg PO DAILY [facility] Last Admin: 05/22/18 10:38 Dose: 25 mg Enalapril Maleate (Vasotec) 20 mg PO DAILY [facility] Last Admin: 05/22/18 10:39 Dose: 20 mg Enoxaparin Sodium (Lovenox) 100 mg SC Q12 [facility] Last Admin: 05/22/18 10:39 Dose: 100 mg Methadone HCl (Methadone) 10 mg PO DAILY [facility] Last Admin: 05/22/18 10:38 Dose: 10 mg Oxycodone HCl (Oxycodone Immediate Release Tab) 30 mg PO Q8H [facility] Last Admin: 05/22/18 11:50 Dose: 30 mg - Labs Labs: 05/21/18 11:02 05/21/18 11:02 PT 12.6 SECONDS (9.7-12.2) H 05/19/18 13:13 INR 1.2 05/19/18 13:13 APTT 33 SECONDS (21-34) 05/19/18 13:13 - Constitutional Appears: Well - Head Exam Head Exam: ATRAUMATIC, NORMAL INSPECTION, NORMOCEPHALIC - Eye Exam Eye Exam: EOMI, Normal appearance, PERRL Pupil Exam: NORMAL ACCOMODATION, PERRL - ENT Exam ENT Exam: Mucous Membranes Moist, Normal Exam - Neck Exam Neck Exam: Full ROM, Normal Inspection. absent: Lymphadenopathy - Respiratory Exam Respiratory Exam: Decreased Breath Sounds - Cardiovascular Exam Cardiovascular Exam: Irregular Rhythm, REGULAR RHYTHM, +S1, +S2 - GI/Abdominal Exam GI & Abdominal Exam: Soft, Diminished Bowel Sounds - Rectal Exam Rectal Exam: Deferred
[2018-05-22] MEDS ORDERED: POLYETHYLENE GLYCOL 3350 17 GM/Dose PACKET PO ONE (14:30)
[2018-05-22] MEDS ORDERED: Enoxaparin 100 mg Syringe SC STA (19:22)
[2018-05-22 20:55] VITALS: BP 137/75
--- NOTE | 2018-05-23 13:27 | VASCLAB ---
Date of service: 05/20/2018 PROCEDURE: Lower Extremity Venous Duplex Exam. HISTORY: acute PE, LE swelling rule out DVT PRIORS: None. TECHNIQUE: Bilateral common femoral, femoral, popliteal and posterior tibial, peroneal and great saphenous veins were evaluated. Flow was assessed with color Doppler, compressibility, assessment of phasic flow and augmentation response. Report prepared by Valeriano Ricks, GIOVANI, RVT FINDINGS: RIGHT: 1. Common Femoral Vein: 1.1. Compressibility - Fully compressible: Thrombus - None : Flow - Phasic: Augmentation -Normal: Reflux - None. 2. Femoral Vein: 2.1. Compressibility - Fully compressible: Thrombus - None : Flow - Phasic: Augmentation -Normal: Reflux - None. 3. Popliteal Vein: 3.1. Compressibility - Fully compressible: Thrombus - None : Flow - Phasic: Augmentation -Normal: Reflux - None. 4. Posterior Tibial Vein: 4.1. Compressibility - Fully compressible: Thrombus - None: Flow - Phasic: Augmentation -Normal: Reflux - None. 5. Peroneal Vein: 5.1. Compressibility - Fully compressible: Thrombus - None: Flow - Phasic: Augmentation -Normal: Reflux - None. 6. Great Saphenous Vein: 6.1. Compressibility - Fully compressible: Thrombus - None: Flow - Phasic: Augmentation - Normal: Reflux - None. LEFT: 1. Common Femoral Vein: 1.1. Compressibility - Fully compressible: Thrombus - None: Flow - Phasic: Augmentation -Normal: Reflux - None. 2. Femoral Vein: 2.1. Compressibility - Fully compressible: Thrombus - None: Flow - Phasic: Augmentation -Normal: Reflux - None. 3. Popliteal Vein: 3.1. Compressibility - Fully compressible: Thrombus - None : Flow - Phasic: Augmentation -Normal: Reflux - None. 4. Posterior Tibial Vein: 4.1. Compressibility - Fully compressible: Thrombus - None: Flow - Phasic: Augmentation -Normal: Reflux - None. 5. Peroneal Vein: 5.1. Compressibility - Partial: Thrombus - Acute: Flow - Reduced : Augmentation - None: Reflux - None. 6. Great Saphenous Vein: 6.1. Compressibility - Fully compressible: Thrombus - None: Flow - Phasic: Augmentation - Normal: Reflux - None. OTHER FINDINGS: JAYDEN Deluca notified about the findings. Impression Right: No evidence of deep or superficial vein thrombosis of the right lower extremity. Normal valve function noted of the right side. Left: Acute thrombosis of the left peroneal vein with severe reduction of the venous return.
--- NOTE | 2018-05-23 22:49 | CP.PCM.PN ---
Subjective - Date & Time of Evaluation Date of Evaluation: 05/21/18 Time of Evaluation: 19:00 - Subjective Subjective: No complaints. Objective - Vital Signs/Intake and Output Vital Signs (last 24 hours): Temp Pulse Resp BP Pulse Ox 98.4 F 86 20 137/75 96 05/22/18 07:00 05/22/18 12:00 05/22/18 07:00 05/22/18 18:30 05/22/18 07:00 - Labs Labs: 05/21/18 11:02 05/21/18 11:02 PT 12.6 SECONDS (9.7-12.2) H 05/19/18 13:13 INR 1.2 05/19/18 13:13 APTT 33 SECONDS (21-34) 05/19/18 13:13 - Head Exam Head Exam: ATRAUMATIC - Eye Exam Eye Exam: Normal appearance - ENT Exam ENT Exam: Mucous Membranes Dry - Respiratory Exam Respiratory Exam: NORMAL BREATHING PATTERN - Cardiovascular Exam Cardiovascular Exam: +S2 - GI/Abdominal Exam GI & Abdominal Exam: Normal Bowel Sounds Assessment and Plan (1) Pulmonary embolism Assessment & Plan: agree with therapeutic anticoagulation + LE DVT ? 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
--- NOTE | 2018-05-23 22:50 | CP.PCM.PN ---
Subjective - Date & Time of Evaluation Date of Evaluation: 05/22/18 Time of Evaluation: 13:00 - Subjective Subjective: No complaints. Objective - Vital Signs/Intake and Output Vital Signs (last 24 hours): Temp Pulse Resp BP Pulse Ox 98.4 F 86 20 137/75 96 05/22/18 07:00 05/22/18 12:00 05/22/18 07:00 05/22/18 18:30 05/22/18 07:00 - Labs Labs: 05/21/18 11:02 05/21/18 11:02 PT 12.6 SECONDS (9.7-12.2) H 05/19/18 13:13 INR 1.2 05/19/18 13:13 APTT 33 SECONDS (21-34) 05/19/18 13:13 - Head Exam Head Exam: ATRAUMATIC - Eye Exam Eye Exam: Normal appearance - ENT Exam ENT Exam: Mucous Membranes Dry - Respiratory Exam Respiratory Exam: NORMAL BREATHING PATTERN - Cardiovascular Exam Cardiovascular Exam: +S1, +S2 - GI/Abdominal Exam GI & Abdominal Exam: Normal Bowel Sounds Assessment and Plan (1) Pulmonary embolism Assessment & Plan: agree with therapeutic anticoagulation + LE DVT ? 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
== END 2018-05-22 20:53 | disposition home or self-care (01) | DRG 176 ==
LOC: C.ER 10:05 → C.6T 16:44
PROVIDERS: ADMIT Internal Medicine Nephrology; ATTEND Internal Medicine Nephrology
DX: I26.99 Other pulmonary embolism without acute cor pulmonale (principal); B20 Human immunodeficiency virus [HIV] disease; I82.409 Acute embolism and thrombosis of unspecified deep veins of unspecified lower extremity; D63.8 Anemia in other chronic diseases classified elsewhere; I11.0 Hypertensive heart disease with heart failure; I50.9 Heart failure, unspecified; Z87.891 Personal history of nicotine dependence; E66.9 Obesity, unspecified

== ENCOUNTER 2018-09-22 13:11 | Outpatient (CLI) | payer MEDICARE | END 2018-09-22 13:12 | disposition home or self-care (01) | LOC: C.RADIC 13:11 ==